=== PATIENT | female | born 1945 | race Two or more races ===

== ENCOUNTER 2019-01-15 07:21 | Outpatient (CLI) | payer OTHER | END 2019-01-15 07:23 | disposition home or self-care (01) | LOC: TOM 07:21 | DX: K57.32 Diverticulitis of large intestine without perforation or abscess without bleeding (principal) ==

== ENCOUNTER 2019-04-30 07:49 | Outpatient (CLI) | payer OTHER | END 2019-04-30 07:58 | disposition home or self-care (01) | LOC: LAB 07:49 | DX: K57.32 Diverticulitis of large intestine without perforation or abscess without bleeding (principal); K92.1 Melena; Z86.010 Personal history of colon polyps ==

== ENCOUNTER 2019-05-04 14:28 | Outpatient (CLI) | payer OTHER | END 2019-05-04 14:33 | disposition home or self-care (01) | LOC: LAB 14:28 | DX: N39.0 Urinary tract infection, site not specified (principal) ==